=== PATIENT | female | born 1990 | race African-American/Black ===

== ENCOUNTER 2024-05-12 11:44 | Emergency (ER) | payer MEDICAID ==
[~2024-05-12] VITALS: Ht 170.2 cm; Wt 69.0 kg
[2024-05-12 11:47] VITALS: O2SAT 99
[2024-05-12 11:51] VITALS: BP 115/70; PULSE 76; RESP 18; TEMP 37; O2SAT 99
[2024-05-12 12:37] LABS: CLARITY URINE TURBID (CLEAR); COLOR URINE DARK YELLOW (YELLOW); GLUCOSE URINE NEGATIVE (NEGATIVE); KETONES URINE TRACE (NEGATIVE); LEUKOCYTE ESTERASE URINE 3+ (NEGATIVE); NITRITE URINE NEGATIVE (NEGATIVE); OCCULT BLOOD URINE 3+ (NEGATIVE); PROTEIN URINE 2+ (NEGATIVE); SPECIFIC GRAVITY URINE 1.023 (1.005-1.030)
[2024-05-12 13:08] LABS: BACTERIA URINE 3+; RBC URINE TNTC /hpf (0-2); SQUAMOUS EPITHELIAL CELL URINE 3+ /lpf (RARE/1+)
[2024-05-12 13:09] LABS: WBC URINE 50-100 /hpf (0-2)
[2024-05-12] MEDS ORDERED: NITR-87 MT (13:10)
== END 2024-05-12 14:15 | disposition home or self-care (01) ==
LOC: ER 11:44
DX: N39.0 Urinary tract infection, site not specified (principal)
CPT/HCPCS: 81003; 81025; 87077; 87186; 99283

== ENCOUNTER 2025-01-05 12:32 | Emergency (ER) | payer MEDICAID, OTHER ==
[~2025-01-05] VITALS: Ht 170.2 cm; Wt 79.0 kg
[~2025-01-05 12:32] MED LIST: NITR-87 MT
[2025-01-05 12:39] VITALS: TEMP 36.9; O2SAT 100
[2025-01-05 13:49] LABS: BASOPHILS % 1.1 % (0.0-2.0); EOSINOPHILS % 0.8 % (0.0-5.0); HEMATOCRIT. 34.6 % (36.0-48.0); HEMOGLOBIN. 11.3 g/dL (12.0-16.0); LYMPHOCYTES % 31.9 % (20.0-50.0); MEAN PLATELET VOLUME 9.2 fl (7.4-10.4); MONOCYTES % 10.0 % (2.0-8.0); NEUTROPHILS % 56.2 % (40.0-76.0); PLATELET 227 x1000/uL (130-400); RED BLOOD CELL COUNT 4.23 mill/uL (4.2-5.4); RED CELL DISTRIBUTION WIDTH 16.1 % (11.6-14.6)
[2025-01-05 14:03] LABS: CREATININE 0.8 mg/dL (0.6-1.0); UREA NITROGEN BLOOD 7 mg/dL (9-23)
[2025-01-05 14:05] LABS: ASPARTATE AMINOTRANSFERASE 13 IU/L (<34); BILIRUBIN DIRECT < 0.1 mg/dL (<=3.0); BILIRUBIN TOTAL 0.3 mg/dL (0.1-1.0); PROTEIN TOTAL 7.4 g/dL (6.0-8.3)
[2025-01-05 14:07] LABS: HCG SCREEN POSITIVE
[2025-01-05 14:13] LABS: INR 0.9
[2025-01-05 14:21] LABS: B-HCG QUANTITATIVE 1585 mIU/mL (<6)
[2025-01-05 15:58] VITALS: BP 115/65; PULSE 62; RESP 19; O2SAT 100
[2025-01-09] MEDS ORDERED: IBUP-2030 MT (13:25)
== END 2025-01-05 16:11 | disposition home or self-care (01) ==
LOC: ER 12:32
DX: O20.9 Hemorrhage in early pregnancy, unspecified (principal); O26.891 Other specified pregnancy related conditions, first trimester; N89.8 Other specified noninflammatory disorders of vagina; Z3A.01 Less than 8 weeks gestation of pregnancy; V49.9XXA Car occupant (driver) (passenger) injured in unspecified traffic accident, initial encounter; Y93.89 Activity, other specified; Y92.410 Unspecified street and highway as the place of occurrence of the external cause; Y99.8 Other external cause status
CPT/HCPCS: 80076; 80048; 81025; 84703; 84702; 85025; 85610; 85730; 86850; 86900; 86901; 36415; 76801; 76817; 99284; Z7610 ×2